=== PATIENT | male | born 2000 | race Hispanic/Latino ===

== ENCOUNTER 2021-06-28 10:23 | Emergency (ER) | payer SELFPAY ==
[2021-06-28] MEDS ORDERED: ONDANSETRON HCL INJ 2MG/ML 2ML 2 MG/ML VIAL IV STA (10:46)
[2021-06-28] MEDS ORDERED: METOCLOPRAMIDE HCL 10 MG/2ML VIAL ONE (10:57)
[2021-06-28] MEDS ORDERED: SODIUM CHLORIDE 0.9% 1000ML 1,000 ML IV SCH (11:00)
[2021-06-28] MEDS ORDERED: ONDANSETRON ODT4 MG PO (12:17)
[2021-06-28 12:28] VITALS: BP 136/75
== END 2021-06-28 12:34 | disposition home or self-care (01) ==
LOC: ER 10:28
DX: R11.2 Nausea with vomiting, unspecified (principal); E86.0 Dehydration
CPT/HCPCS: 99283; J2405; J2765; J7030